=== PATIENT | male | born 1970 | race Hispanic/Latino ===

== ENCOUNTER 2017-08-28 14:12 | Inpatient (IN) | payer BC, OTHER ==
[~2017-08-28] VITALS: Ht 175.3 cm; Wt 101.5 kg
[2017-08-28] MEDS ORDERED: SODIUM CHLORIDE 0.9% 1000ML 3,000 ML IV ONE (15:40)
[2017-08-28 15:45] LABS: BASOPHILS % (AUTO) 0.5 % (0.0-5.0); EOSINOPHILS % (AUTO) 0.2 % (0.0-8.0); HEMATOCRIT 48.3 % (42-54); LYMPHOCYTES % (AUTO) 9.8 % (21.0-51.0); MEAN CORPUSCULAR HEMOGLOBIN 30.9 pg (27.0-33.0); MEAN CORPUSCULAR HGB CONC 35.3 g/dL (32.0-36.0); MEAN CORPUSCULAR VOLUME 87.4 fL (79-99); MONOCYTES % (AUTO) 5.7 % (3.0-13.0); NEUTROPHILS % (AUTO) 83.8 % (40.0-77.0); PLATELET COUNT (AUTO) 226 K/uL (130-400); RED BLOOD CELL COUNT(AUTO) 5.53 MIL/uL (4.50-6.20); RED CELL DISTRIBUTION WIDTH 13.5 % (11.0-15.5); WHITE BLOOD COUNT (AUTO) 16.3 K/uL (4.8-10.8)
[2017-08-28 15:52] LABS: APPEARANCE,URINE Clear (CLEAR); BILIRUBIN,URINE Small (NEGATIVE); COLOR,URINE Dark Yellow (YELLOW); GLUCOSE, URINE (UA) Negative (NEGATIVE); KETONES,URINE 15 mg/dL (NEGATIVE); LEUKOCYTE ESTERASE ,URINE Trace (NEGATIVE); NITRATE,URINE Negative (NEGATIVE); OCCULT BLOOD,URINE Negative (NEGATIVE); PH,URINE 5.5 (5.0-8.0); PROTEIN,URINE Negative (NEGATIVE)
[2017-08-28 15:56] LABS: CARBON DIOXIDE 28 mmol/L (21-32); CHLORIDE 99 mmol/L (101-111); CREATININE 0.9 mg/dL (0.5-1.5); GLOMERULAR FILTR. RATE CALC 96 mL/min (>60); GLUCOSE,RANDOM 111 mg/dL (70-105); POTASSIUM 4.1 mmol/L (3.5-5.1); SODIUM SERUM 136 mmol/L (136-145); UREA NITROGEN, BLOOD 10 mg/dL (7-18)
[2017-08-28 16:00] LABS: BACTERIA,URINE Rare /HPF (None Seen); RBC,URINE None Seen /HPF (0-1); WBC,URINE 0-1 /HPF (0-1)
[2017-08-28 16:01] LABS: MUCUS,URINE Many LPF (None Seen); SQUAMOUS EPITHELIAL CELL,UR 0-2 /HPF (0-2)
[2017-08-28 16:01] LABS: INR 1.05 (0.85-1.15); PARTIAL THROMBOPLASTIN TIME 26.3 SEC (26.3-35.5); PROTHROMBIN TIME 10.8 SEC (9.6-11.6)
[2017-08-28 16:10] LABS: ALANINE AMINOTRANSFERASE 83 U/L (12-78); ALBUMIN 3.9 g/dL (3.5-5.0); ASPARTATE AMINOTRANSFERASE 36 U/L (10-37); BILIRUBIN,TOTAL 1.3 mg/dL (0.2-1.0); CREATINE KINASE MB < 0.5 ng/mL (0.5-3.6); CREATINE KINASE, TOTAL 58 U/L (21-232); MYOGLOBIN 28 ng/mL (10-92); TOTAL PROTEIN, SERUM 8.2 g/dL (6.0-8.3); TROPONIN I < 0.04 ng/mL (0.00-0.06)
[2017-08-28] MEDS ORDERED: SODIUM CHLORIDE 0.9% 1000ML 1,000 ML IV ONE (17:43)
[2017-08-28] MEDS ORDERED: METRONIDAZOLE 500MG/100ML BAG 100 ML ONE (18:08)
[2017-08-28] MEDS ORDERED: LEVOFLOXACIN 750 MG/D5W 150 ML 150 ML ONE (18:08)
[2017-08-28] MEDS: LEVOFLOXACIN 500 MG/D5W 100 ML 100 ML IV SCH (18:09)
[2017-08-28] MEDS: METRONIDAZOLE 500MG/100ML BAG 100 ML IV SCH (18:09)
[2017-08-28] MEDS ORDERED: HYDRALAZINE HCL 20 MG/ML VIAL IV PRN (23:15)
[2017-08-28] MEDS ORDERED: POTASSIUM CHLORIDE 10% ELIXIR 20 MEQ/15 ML UDCUP PO PRN (23:15)
[2017-08-28] MEDS ORDERED: POTASSIUM CHLORIDE 20MEQ/100ML 100 ML IV PRN (23:15)
[2017-08-28] MEDS ORDERED: POTASSIUM CHLORIDE 20 MEQ ERTAB PO PRN (23:15)
[2017-08-28] MEDS ORDERED: LIDOCAINE HCL-MPF 1% 2ML VIAL IVP PRN (23:15)
[2017-08-28] MEDS ORDERED: MORPHINE SULFATE 2 MG/ML 1ML SYG IV PRN (23:15)
[2017-08-28] MEDS ORDERED: MORPHINE SULFATE 4 MG/1ML SYG IV PRN (23:15)
[2017-08-28] MEDS ORDERED: ONDANSETRON HCL MDV 20ML 2 MG/ML VIAL IV PRN (23:15)
[2017-08-29] VITALS (7 sets, daily range): BP systolic 111–147; BP diastolic 61–96
[2017-08-29] MEDS: SODIUM CHLORIDE 0.9% 1000ML 1,000 ML IV SCH ×4 (02:24→23:01)
[2017-08-29] MEDS: METRONIDAZOLE 500MG/100ML BAG 100 ML IV SCH ×3 (06:11→22:46)
[2017-08-29 06:33] LABS: HEMATOCRIT 40.9 % (42-54); MEAN CORPUSCULAR HEMOGLOBIN 30.9 pg (27.0-33.0); MEAN CORPUSCULAR VOLUME 88.2 fL (79-99); PLATELET COUNT (AUTO) 183 K/uL (130-400); RED BLOOD CELL COUNT(AUTO) 4.63 MIL/uL (4.50-6.20); RED CELL DISTRIBUTION WIDTH 13.4 % (11.0-15.5); WHITE BLOOD COUNT (AUTO) 11.7 K/uL (4.8-10.8)
[2017-08-29 06:43] LABS: CREATININE 0.9 mg/dL (0.5-1.5); POTASSIUM 4.5 mmol/L (3.5-5.1)
[2017-08-29] MEDS ORDERED: MORPHINE SULFATE 4 MG/1ML SYG IVP PRN (07:30)
[2017-08-29] MEDS: FAMOTIDINE/PF 20 MG/2 ML VIAL IV SCH ×2 (08:37→22:46)
[2017-08-29] MEDS ORDERED: FAMOTIDINE/PF 20 MG/2 ML VIAL IV SCH (09:00)
[2017-08-29] MEDS: LEVOFLOXACIN 500 MG/D5W 100 ML 100 ML IV SCH (23:38)
[2017-08-30 03:50] VITALS: BP 125/79
[2017-08-30] MEDS: SODIUM CHLORIDE 0.9% 1000ML 1,000 ML IV SCH (07:03)
[2017-08-30] MEDS: METRONIDAZOLE 500MG/100ML BAG 100 ML IV SCH ×3 (07:05→22:20)
[2017-08-30 09:06] VITALS: BP 123/86
[2017-08-30] MEDS: FAMOTIDINE/PF 20 MG/2 ML VIAL IV SCH ×2 (09:45→20:13)
[2017-08-30 12:00] VITALS: BP 130/80
[2017-08-30] MEDS: ACETAMINOPHEN 325 MG TAB PO PRN ×2 (15:14→21:52)
[2017-08-30 16:45] VITALS: BP 128/85
[2017-08-30 20:12] VITALS: BP 130/91
[2017-08-30] MEDS: LEVOFLOXACIN 500 MG/D5W 100 ML 100 ML IV SCH (23:34)
[2017-08-30 23:50] VITALS: BP 127/91
[2017-08-31 04:00] VITALS: BP 131/89
[2017-08-31] MEDS: METRONIDAZOLE 500MG/100ML BAG 100 ML IV SCH ×2 (06:57→13:39)
[2017-08-31] MEDS: FAMOTIDINE/PF 20 MG/2 ML VIAL IV SCH (08:30)
[2017-08-31 08:55] VITALS: BP 130/85
[2017-08-31] MEDS ORDERED: METR500T PO (10:23)
[2017-08-31] MEDS ORDERED: LEVO500T2 PO (10:23)
[2017-08-31 12:10] VITALS: BP 125/81
== END 2017-08-31 16:25 | disposition home or self-care (01) | DRG 872 ==
LOC: EDH 14:12 → EDHIP 18:10 → OBSVTOIN 18:10 → 4CH 08-29 00:59
PROVIDERS: ADMIT Internal Medicine; ATTEND Internal Medicine
DX: A41.9 Sepsis, unspecified organism (principal); K57.92 Diverticulitis of intestine, part unspecified, without perforation or abscess without bleeding; E86.0 Dehydration; K58.9 Irritable bowel syndrome, unspecified; Z80.9 Family history of malignant neoplasm, unspecified
CPT/HCPCS: 36415; 74176; 80048; 80053; 81001; 82550; 82553; 83605; 83874; 84484; 85025; 85027; 85610; 85730; 87040; 87088; 93005; C9113; J1956; J3490; J7030

== ENCOUNTER 2025-02-12 10:18 | Emergency (ER) | payer OTHER ==
[~2025-02-12] VITALS: Ht 175.3 cm; Wt 97.1 kg
[~2025-02-12 10:18] MED LIST: LEVO500T2 PO; METR500T PO
[2025-02-12 10:58] LABS: IMMATURE GRANULOCYTE ABSOLUTE 0.05 K/uL (0-1); NUCLEATED RED BLOOD CELLS 0.0 % (0.0-0.19); PLATELET COUNT (AUTO) 240 K/uL (130-400); RED BLOOD CELL COUNT(AUTO) 5.40 MIL/uL (4.50-6.20); RED CELL DISTRIBUTION WIDTH 12.9 % (11.0-15.5); WHITE BLOOD COUNT (AUTO) 10.6 K/uL (4.8-10.8)
[2025-02-12 11:15] LABS: ASPARTATE AMINOTRANSFERASE 29.0 U/L (10-37); CREATININE 0.9 mg/dL (0.5-1.3); GLOMERULAR FILTR. RATE CALC 101.0 mL/min (>90); GLUCOSE,RANDOM 97.0 mg/dL (70-105); SODIUM SERUM 137.0 mmol/L (136-145); TOTAL PROTEIN, SERUM 8.1 g/dL (6.0-8.3); UREA NITROGEN, BLOOD 10.0 mg/dL (7-18)
--- NOTE | 2025-02-12 11:35 | ERN ---
General Chief Complaint: Abdominal Pain Stated Complaint: LLQ PAIN, CONSTIPATED Time Seen by MD: 10:21 History of Present Illness Initial Comments Patient is a 54-year-old male who presented to ED with pain in abdomen. Patient says that abdominal pain started on and gradually increasing, not relieved with jvdg-swc-gvfbods pain medications. Patient said that his last bowel movement was on , passed little gas this morning. Patient says that he has history of diabetic ileitis and has similar episodes 2 years back which resolved in few days. He denies nausea, vomiting, diarrhea, chest pain, palpitations, shortness of breath. Allergies: Coded Allergies: No Known Drug Allergies (Unverified Allergy, Unknown, 08/29/17) Home Meds Active Scripts Naproxen Sodium (Naproxen Sodium) 275 Mg Tablet, 1 TAB PO BID for 10 Days, #20 TAB 0 Refills Prov:BETO JENSEN MD 02/12/25 Amoxicillin/Potassium Clav (Augmentin 500-125 Tablet) 500 Mg-125 Mg Tablet, 1 TAB PO BID for 10 Days, #20 TAB 0 Refills Prov:BETO JENSEN MD 02/12/25 Metronidazole (Flagyl) 500 Mg Tablet, 500 MG PO TID, #30 TAB Prov:ELICEO YOUNG MD 08/31/17 Levofloxacin (Levaquin) 500 Mg Tablet, 500 MG PO DAILY, #10 TAB Prov:ELICEO YOUNG MD 08/31/17 Past Medical History Past Medical History: Hypertension Past Surgical History: Other Surgical History Other: SHOULDER Respiratory: (-) cough, (-) orthopnea, (-) short of breath, (-) stridor, (-) wheezing, (-) other documentation Cardiovascular: (-) chest pain, (-) edema, (-) palpitations, (-) syncope, (-) dyspnea on exertion, (-) other documentation Gastrointestinal/Abdominal: (+) abdominal pain, (+) constipation Review of Systems: was completed Nurses Notes Reviewed: Yes Physical Exam General Appearance: (+) no apparent distress; (-) apparent distress, (-) mild distress, (-) moderate distress, (-) severe distress, (-) thin, (-) obese, (-) combative, (-) cachetic, (-) anxious, (-) other documentation Orientation: (+) alert, (+) oriented x 3; (-) disoriented, (-) other documentation Head/Face Trauma: No Respiratory: (+) chest non-tender, (+) lungs clear, (+) well ventilated; (-) decreased breath sounds, (-) retractions, (-) abnormal breath sound, (-) crackles, (-) plerual rub, (-) rales, (-) rhonchi, (-) stridor, (-) wheezing, (- ) other documentation Heart: (+) regular, (+) no gallop; (-) murmur, (-) irregular, (-) bradycardia, (-) tachycardia, (-) systolic murmur, (-) diastolic murmur, (-) extra beats, (-) friction rub, (-) gallop/S3, (-) gallop/S4, (-) other documentation Gastrointestinal: (+) soft, (+) tender Results Laboratory and Microbiology Lab and Micro Result Laboratory Tests Test 02/12/25 10:50 White Blood Count 10.6 K/uL (4.8-10.8) Red Blood Count 5.40 MIL/uL (4.50-6.20) Hemoglobin 16.3 g/dL (14.0-18.0) Hematocrit 47.6 % (42-54) Mean Corpuscular Volume 88.1 fL (79-99) Mean Corpuscular Hemoglobin 30.2 pg (27.0-33.0) Mean Corpuscular Hemoglobin Concent 34.2 g/dL (32.0-36.0) Red Cell Distribution Width 12.9 % (11.0-15.5) Platelet Count 240 K/uL (130-400) Mean Platelet Volume 9.5 fL (7.5-10.5) Immature Granulocyte % (Auto) 0.5 % (0-1) Neutrophils (%) (Auto) 64.5 % (40.0-77.0) Lymphocytes (%) (Auto) 26.7 % (21.0-51.0) Monocytes (%) (Auto) 6.3 % (3.0-13.0) Eosinophils (%) (Auto) 1.2 % (0.0-8.0) Basophils (%) (Auto) 0.8 % (0.0-5.0) Neutrophils # (Auto) 6.9 K/uL (1.8-7.7) Lymphocytes # (Auto) 2.8 K/uL (1.0-4.8) Monocytes # (Auto) 0.7 K/uL (0.1-1.0) Eosinophils # (Auto) 0.13 K/uL (0.00-0.70) Basophils # (Auto) 0.08 K/uL (0.00-0.20) Absolute Immature Granulocyte (auto 0.05 K/uL (0-1) Nucleated Red Blood Cells 0.0 % (0.0-0.19) Sodium Level 137 mmol/L (136-145) Potassium Level 4.0 mmol/L (3.5-5.1) Chloride Level 96 mmol/L (101-111) L Carbon Dioxide Level 36 mmol/L (21-32) H Blood Urea Nitrogen 10 mg/dL (7-18) Creatinine 0.9 mg/dL (0.5-1.3) Glomerular Filtration Rate Calc 101 mL/min (>90) Random Glucose 97 mg/dL (70-105) Lactic Acid Level 1.3 mmol/L (0.8-2.5) Total Calcium 9.6 mg/dL (8.5-10.1) Total Bilirubin 1.1 mg/dL (0.2-1.0) H Aspartate Amino Transf (AST/SGOT) 29 U/L (10-37) Alanine Aminotransferase (ALT/SGPT) 56 U/L (12-78) Alkaline Phosphatase 68 U/L (50-136) Total Protein 8.1 g/dL (6.0-8.3) Albumin 4.2 g/dL (3.5-5.0) Lipase 71 U/L (16-77) EKG/XRAY/US/CT/MRI CT Scan Comment [place] [id number] [address] IMAGING REPORT Signed PATIENT: RICHELLE ZELAYA MR#: [id number] : 1970 SEX: M AGE: 54 LOCATION: [facility] ORDER 1035 STATUS: REG ER REPORT#: [id number] SERVICE [id number] REASON: abdominal pain, not passing stools since 4 days ORDERING PHYSICIAN: BETO JENSEN MD PROCEDURE: ABD PEL W - CT ABDOMEN/PELVIS W/CONTRAST EXAM: CT Abdomen and Pelvis with IV contrast CLINICAL HISTORY: abdominal pain, not passing stools since 4 days TECHNIQUE: Axial computed tomography images of the abdomen and pelvis with intravenous contrast. CONTRAST: with intravenous contrast. COMPARISON: Study dated 08/28/2017 FINDINGS: LUNG BASES: The lung bases appear clear. No pleural effusions are seen. LIVER: Two simple hepatic cysts in both lobes liver, the largest in the right lobe measures approximately 18 x 16 mm. Prominent caudate lobe of the liver GALLBLADDER AND BILE DUCTS: The gallbladder appears within normal limits. No radioopaque gallstones are seen. No biliary ductal dilatation is evident. PANCREAS: Unremarkable. SPLEEN: Spleniculus measures approximately 12 x 10 mm. There is no focal splenic abnormality appreciated.. ADRENAL GLANDS: Unremarkable. KIDNEYS, URETERS, AND BLADDER: Succinometric simple cortical cyst in both kidneys. The kidneys appear within normal limits. There is no hydronephrosis or hydroureter. No urinary calculi are seen. STOMACH AND BOWEL: Unremarkable appearance of the stomach. No evidence of bowel obstruction. There is colonic diverticulosis with very mild pericolonic inflammatory fat stranding at the mid to distal descending colon reflecting acute diverticulitis. No CT evidence of complications. APPENDIX: No evidence of acute appendicitis on CT examination. PERITONEUM: No free fluid. No free air. Inguinal hernia, left side, with herniation of peritoneal fat, defect measures approximately 25 mm Small umbilical hernia with herniation of omental fat, defect measures approximately 13 mm LYMPH NODES: No lymphadenopathy is evident. REPRODUCTIVE: Unremarkable as visualized. VASCULATURE: No evidence of abdominal aortic aneurysm. BONES: No aggressive appearing osseous lesion. No acute osseous pathology evident. Mild levoscoliosis IMPRESSION: 1. Acute diverticulitis in the mid to distal descending colon without CT evidence of complications. 2. Left inguinal hernia with herniation of peritoneal fat, defect measuring approximately 25 mm. 3. Small umbilical hernia with herniation of omental fat, defect measuring approximately 13 mm. /[place] DICTATED BY: CARINE MANN Jr., MD DATE: 02/12/251429 ELECTRONICALLY SIGNED BY: CARINE MANN Jr., MD DATE: 02/12/25 143 [facility] MDM: Differential diagnosis: Bowel obstruction /diverticulitis/pancreatitis Patient is 54-year-old male who presented to ED with complaints of abdominal pains which started last , constant in nature, not resolving with rfuo-ufn-[id number] pain medication. We ordered CBC, CMP, lipase, lactic acid, CT abdomen and pelvis with contrast. His CBC, CMP, lipase, lactic acid levels are unremarkable except for mild elevations in bilirubin. CT abdomen and pelvis with contrast showed acute diverticulitis of distal colon without complications. Patient looks stable and we informed him about his condition, we will discharge him with oral antibiotics and pain medication. Advised him to follow up with his PCP in 3-5 days. ED Course Orders Procedure Category Date Status Time Ct Abdomen/Pelvis CT 02/12/25 Resulted W/Contrast 10:33 Cbc With Differential LAB 02/12/25 Complete 10:33 Comprehensive LAB 02/12/25 Complete Metabolic Panel 10:33 Lipase LAB 02/12/25 Complete 10:33 Lactic Acid LAB 02/12/25 Complete 10:33 Iohexol (Omnipaque) PHA 02/12/25 Complete 12:12 Current Medications Medications (Trade) Dose Ordered Sig/Burak Route PRN Reason Start Time Stop Time Status Last Admin Dose Admin Iohexol (Omnipaque) 75 ml STK-MED ONCE IV 02/12/25 12:12 02/12/25 12:12 DC Vital Signs Date Time Temp Pulse Resp B/P (MAP) Pulse Ox O2 Delivery O2 Flow Rate FiO2 02/12/25 14:18 98.2 78 17 137/97 98 Room Air* 0 21 02/12/25 12:45 98.1 82 17 142/96 98 Room Air* 0 02/12/25 10:19 99.1 75 16 149/101 96 Room Air 0 HEART Score Response (Comments) Value History: Low suspicion (0) 0 Age: 45-65yrs (+1) 1 Total 1 DX & DISP Disposition: Discharge Departure Impression: Primary Impression: Acute diverticulitis of intestine Critical Time: 30 minutes Condition: Stable Scripts Naproxen Sodium (Naproxen Sodium) 275 Mg Tablet 1 TAB PO BID for 10 Days, #20 TAB 0 Refills Prov: BETO JENSEN MD 02/12/25 Amoxicillin/Potassium Clav (Augmentin 500-125 Tablet) 500 Mg-125 Mg Tablet 1 TAB PO BID for 10 Days, #20 TAB 0 Refills Prov: BETO JENSEN MD 02/12/25 Additional Instructions: You have acute diverticulitis of distal colon without complications. Your lab work is unremarkable, except for mild elevation in bilirubin. We will discharge you with Augmentin 500-125 tablet p.o. b.i.d. for 10 days, naproxen sodium 275 mg p.o. b.i.d. for 10 days. You can use [id number]-[id number] laxatives for constipation. Please follow-up with your PCP in 3-5 days. If your symptoms get worsen, if you have fresh blood in stool, if you have rigid and sensitive abdomen report to nearest ED. Referrals: MADAN MCKEON MD (PCP) ATTESTATION BY PHYSICIAN I have seen and examined the patient. I reviewed the documentation, medical decision making, and treatment plan as noted by the resident provider above. I agree with the findings and plan of care. SHAINA HARTMAN DO CC: Left-sided abdominal pain Historian: Patient Comorbidities: Hypertension diverticulosis diverticulitis Limitations by social determinants of health: None Differential diagnosis: Bowel obstruction, diverticulitis, GI pathology, surgical pathology, other Vital signs are stable Clinical exam shows some mild tenderness to the left side Labs are unremarkable. No leukocytosis. CT scan shows very small area of acute diverticulitis consistent with the patient's symptoms Patient received IV fluids in the ER Patient's pain control. No signs of SIRS or sepsis. P.o. tolerant. No signs of dehydration. Patient has a nontoxic. Discussed the plan with the patient. Since he has stable vital signs and stable labs and a very small area of acute diverticulitis that has uncomplicated, we agreed that outpatient antibiotics is reasonable. We will discharge with pain control on outpatient antibiotics in the patient will follow up with the PCP. I performed a substantive portion of the visit. I have reviewed and personally made and approve the management plan that is documented in the notes by myself with BRITT/resident. I acknowledged full responsibility for the patient's management plan. BETO JENSEN MD Feb 12, 2025 11:35 SHAINA HARTMAN DO Feb 12, 2025 15:06
[2025-02-12] MEDS ORDERED: IOHEXOL-350 75 ML VIAL IV ONE (12:12)
--- NOTE | 2025-02-12 13:30 | HMCIMG ---
EXAM: CT Abdomen and Pelvis with IV contrast CLINICAL HISTORY: abdominal pain, not passing stools since 4 days TECHNIQUE: Axial computed tomography images of the abdomen and pelvis with intravenous contrast. CONTRAST: with intravenous contrast. COMPARISON: Study dated 08/28/2017 FINDINGS: LUNG BASES: The lung bases appear clear. No pleural effusions are seen. LIVER: Two simple hepatic cysts in both lobes liver, the largest in the right lobe measures approximately 18 x 16 mm. Prominent caudate lobe of the liver GALLBLADDER AND BILE DUCTS: The gallbladder appears within normal limits. No radioopaque gallstones are seen. No biliary ductal dilatation is evident. PANCREAS: Unremarkable. SPLEEN: Spleniculus measures approximately 12 x 10 mm. There is no focal splenic abnormality appreciated.. ADRENAL GLANDS: Unremarkable. KIDNEYS, URETERS, AND BLADDER: Succinometric simple cortical cyst in both kidneys. The kidneys appear within normal limits. There is no hydronephrosis or hydroureter. No urinary calculi are seen. STOMACH AND BOWEL: Unremarkable appearance of the stomach. No evidence of bowel obstruction. There is colonic diverticulosis with very mild pericolonic inflammatory fat stranding at the mid to distal descending colon reflecting acute diverticulitis. No CT evidence of complications. APPENDIX: No evidence of acute appendicitis on CT examination. PERITONEUM: No free fluid. No free air. Inguinal hernia, left side, with herniation of peritoneal fat, defect measures approximately 25 mm Small umbilical hernia with herniation of omental fat, defect measures approximately 13 mm LYMPH NODES: No lymphadenopathy is evident. REPRODUCTIVE: Unremarkable as visualized. VASCULATURE: No evidence of abdominal aortic aneurysm. BONES: No aggressive appearing osseous lesion. No acute osseous pathology evident. Mild levoscoliosis IMPRESSION: 1. Acute diverticulitis in the mid to distal descending colon without CT evidence of complications. 2. Left inguinal hernia with herniation of peritoneal fat, defect measuring approximately 25 mm. 3. Small umbilical hernia with herniation of omental fat, defect measuring approximately 13 mm. /[place]
[2025-02-12] MEDS ORDERED: NAPR275T96 PO (13:55)
[2025-02-12] MEDS ORDERED: AMOX-426 PO (13:55)
[2025-02-12 14:18] VITALS: BP 137/97; PULSE 78; RESP 17; TEMP 98.3; O2SAT 98
== END 2025-02-12 14:19 | disposition home or self-care (01) ==
LOC: EDH 10:18
DX: K57.32 Diverticulitis of large intestine without perforation or abscess without bleeding (principal); E11.9 Type 2 diabetes mellitus without complications; I10 Essential (primary) hypertension
CPT/HCPCS: 99285; 74177; 80053; 83690; 85025; 83605; 36415; Q9967